=== PATIENT | male | born 1995 | race African-American/Black ===

== ENCOUNTER 2024-12-06 07:05 | Emergency (ER) | payer OTHER ==
[~2024-12-06] VITALS: Ht 167.6 cm; Wt 122.5 kg
[2024-12-06 07:24] VITALS: BP 155/110; PULSE 103; RESP 19; TEMP 97.8; O2SAT 97
[2024-12-06 07:44] LABS: BASOPHIL # 0.0 10^3/uL (0.0-0.1); BASOPHIL % 0.5 % (0.2-1.2); EOSINOPHIL # 0.0 10^3/uL (0.0-0.2); EOSINOPHIL % 0.5 % (0.0-5.0); HEMATOCRIT(ML) 47.3 % (37.0-53.0); IG % 0.20 % (0.00-0.50); LYMPHOCYTES # 1.46 10^3/uL1 (1.0-4.8); LYMPHOCYTES % 25.7 % (24.0-44.0); MEAN CORP HGB 24.6 pg (26-34); MEAN CORP HGB CONCENTRATION 31.7 g/dL (33-36.5); MEAN CORP VOLUME 77.5 fL (78-100); MONOCYTES # 0.4 10^3/uL (0.3-0.8); MONOCYTES % 6.7 % (5.0-12.0); NEUTROPHIL # 3.8 10^3/uL (1.8-7.7); NEUTROPHILS % 66.4 % (41.0-85.0); RED BLOOD CELL 6.10 10^6/uL (4.50-5.90); RED CELL DISTRIBUTION WIDTH 14.7 % (11.5-14.5); WHITE BLOOD CELL 5.7 10^3/uL (4.5-11.0)
[2024-12-06 07:59] LABS: ALANINE AMINOTRANSFERASE(ML) 60.0 U/L (12-78); ALBUMIN(ML) 4.4 g/dL (3.4-5.0); CREATININE SERUM 1.24 mg/dL (0.59-1.40); EST GFR, NON-AA 68.9 (>/=60)
[2024-12-06] MEDS ORDERED: LIDOCAINE 1% VIAL ONE (08:00)
[2024-12-06 08:05] VITALS: BP 167/118; PULSE 103; RESP 19; TEMP 97.8; O2SAT 95
[2024-12-06 08:55] VITALS: BP 148/105; PULSE 121; RESP 18; TEMP 97.8; O2SAT 95
== END 2024-12-06 08:55 | disposition short-term general hospital (02) ==
LOC: EDBD 07:05 → ER 07:05
DX: S01.81XA Laceration without foreign body of other part of head, initial encounter (principal); Z79.899 Other long term (current) drug therapy; V89.2XXA Person injured in unspecified motor-vehicle accident, traffic, initial encounter; Y93.89 Activity, other specified; Y92.410 Unspecified street and highway as the place of occurrence of the external cause; Y99.8 Other external cause status
CPT/HCPCS: 99291; 70486; 80053; 85025; 82948; 36415; G0390; J2003